=== PATIENT | female | born 1985 | race African-American/Black ===

== ENCOUNTER 2017-11-27 14:27 | Emergency (ER) | payer OTHER ==
[~2017-11-27] VITALS: Ht 165.1 cm; Wt 65.8 kg
[2017-11-27] MEDS ORDERED: POVIDONE IODINE 10% 120 ML BTL EXT ONE (15:15)
[2017-11-27] MEDS ORDERED: LIDOCAINE 1% W/EPINEPHRINE 20 ML VIAL INJ ONE (15:15)
== END 2017-11-27 15:30 | disposition home or self-care (01) ==
LOC: FSED 14:27
DX: N61.1 Abscess of the breast and nipple (principal); R01.1 Cardiac murmur, unspecified
CPT/HCPCS: 87071; 87205; 99284